=== PATIENT | female | born 1990 | race Two or more races ===

== ENCOUNTER 2019-05-19 22:40 | Emergency (ER) | payer BC, OTHER ==
[~2019-05-19] VITALS: Ht 175.3 cm; Wt 67.0 kg
[~2019-05-19 22:40] MED LIST: LEVO750T6 PO; TRAM50TA2 PO
[2019-05-19 22:45] VITALS: BP 141/92
[2019-05-20] MEDS ORDERED: DEXAMETHASONE 4 MG TABLET ONE (00:03)
[2019-05-20] MEDS ORDERED: DEXAMETHASONE 4 MG TABLET PO ONE (00:30)
== END 2019-05-20 00:12 | disposition home or self-care (01) ==
LOC: ED 23:19
DX: R06.00 Dyspnea, unspecified (principal); B34.9 Viral infection, unspecified; I49.3 Ventricular premature depolarization
CPT/HCPCS: 71045; 93005; 99283